=== PATIENT | female | born 1955 | race Caucasian/White ===

== ENCOUNTER 2018-09-19 08:19 | Day surgery (SDC) | payer MEDICARE, MEDICAID ==
[2018-09-19] MEDS: Lactated Ringers 1,000 ML IV ONE (08:58)
[2018-09-19] MEDS: Cyanocobalamin (Vitamin B12) 1,000 MCG/ML SDV IM ONE (09:19)
[2018-09-19] MEDS: MVI, Adult with Vitamin K 10 ML, Thiamine 200 MG, Chromium/Copper/Mang/Selen/Zn 1 ML in... IV ONE ×4 (10:04)
[2018-09-19] MEDS: Glycopyrrolate 0.2 MG/ML 2 ML SDV IVPUSH ONE (12:11)
[2018-09-19] MEDS ORDERED: Propofol 200 MG/20 ML SDV ONE (12:27)
[2018-09-19] MEDS ORDERED: fentaNYL 100 MCG/2 ML SDV ONE (12:28)
[2018-09-19] MEDS ORDERED: Midazolam 1 MG/ML 2 ML SDV ONE (12:28)
[2018-09-19] MEDS ORDERED: Lactated Ringers 1,000 ML ONE (12:53)
[2018-09-19] MEDS ORDERED: Ondansetron 4 MG/2 ML SDV ONE (12:53)
[2018-09-19] MEDS: Iopamidol 612 MG/ML 100 ML Bottle IV SCH (14:33)
[2018-09-19] MEDS: Sodium Chloride 0.9% 10 ML Syringe FLUSH ONE (14:33)
[2018-09-19] MEDS: Sodium Chloride 0.9% 80 ML IV ONE (14:33)
--- NOTE | 2018-09-19 15:27 | CRLCT ---
INDICATION: Dysphagia COMPARISON: None available TECHNIQUE: CT examination of the abdomen and pelvis was performed with the uneventful intravenous administration of 100 cc of Isovue-300 while 3 mm thick axial sections were obtained from the lung bases through the pubic symphysis. Oral contrast was administered. Please note that all CT scans at this facility use dose modulation, iterative reconstruction, and/or weight-based dosing when appropriate to reduce radiation dose to as low as reasonably achievable. FINDINGS: In the abdomen, the liver, spleen, pancreas, and adrenals are normal in appearance. The kidneys are normal in appearance. Clips are seen in the gall bladder fossa from cholecystectomy. There is moderate dilatation of common bile duct measuring 11 millimeters in caliber, consistent with post cholecystectomy status. The abdominal aorta is normal in caliber with no sign of dilatation. There is no sign of retroperitoneal mass or adenopathy. There is a small hiatal hernia. There are changes of an esophagojejunostomy with prompt passage of the oral contrast from the esophagus into the jejunum. The rest of the stomach, the rest of the loops of small bowel, and colon in the abdomen are otherwise normal in appearance. In the pelvis, the appendix is nonvisualized, but there is no sign of an inflammatory process in the area of the appendix. The loops of small bowel and colon in the pelvis are normal in appearance. Visualization of the inferior pelvis is limited by prominent streak artifact from a right total hip prosthesis and changes of ORIF of a left hip fracture. The prosthetic components of the right hip are in anatomic alignment. The femoral neck nail and intramedullary katarina in the left hip are intact. The uterus appears to have been resected, but visualization of this region is limited by prominent streak artifact. The adnexal regions are grossly normal in appearance. The urinary bladder is normal in appearance. There is no sign of pelvic or inguinal mass or adenopathy. The lung bases are clear. There is a moderate compression fracture of L1. There are mild compression fractures of T9 through T12. There is moderate age-appropriate hypertrophic change throughout the inferior thoracic and upper lumbar spines. There is an old moderate inferior L4 endplate fracture. There is prominent L5-S1 disc degenerative disease. IMPRESSION: CT of the abdomen shows changes of esophagojejunostomy with prompt passage of contrast from the esophagus into the nondistended jejunum. Small hiatal hernia. Status post cholecystectomy with moderate dilatation of the common bile duct consistent with post cholecystectomy status. CT of the pelvis shows changes hysterectomy. Visualization of the inferior pelvis limited by prominent streak artifact from right total hip prosthesis and changes of ORIF of a left hip fracture. Please note that all CT scans at this facility use dose modulation, iterative reconstruction, and/or weight-based dosing when appropriate to reduce radiation dose to as low as reasonably achievable. Dictated by Jason Mcneil MD @ Sep 19 2018 3:16PM Signed by Dr. Jason Mcneil @ Sep 19 2018 3:26PM
--- NOTE | 2018-09-22 08:22 | OR ---
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 POSTOPERATIVE DIAGNOSES: Postprandial nausea and bloating, status post Ty-en-Y gastric bypass with normal upper GI endoscopic examination (suggestive of more distal partial small bowel obstruction). OPERATIVE PROCEDURE: Upper GI endoscopy. ANESTHESIA: IV sedation. INDICATION FOR PROCEDURE: This is a 63-year-old status post previous Ty-en-Y gastric bypass; this was done as an open procedure in 2001. Preoperatively, the patient weighed 386 pounds, and she presently has a weight of 183 pounds with BMI of 29.5. Over the recent months, she has had increasing problems with postprandial nausea and bloating. She develops nausea more or less after eating just a small amount of food and is undergoing upper GI endoscopy for investigation of this symptom complex. Potential risks of the procedure, including bleeding and perforation were discussed, and the patient wishes to proceed. DETAILS OF PROCEDURE: The patient was taken to the operating room, placed in a left lateral decubitus position. IV sedation was administered, after which the upper GI endoscope was passed orally through the length of the esophagus and into the gastric pouch, and from there through the gastrojejunostomy, and roughly 20 cm into the Ty limb. Findings overall were entirely normal. There was no evidence of inflammation at the esophagus, EG junction, gastric pouch, or around the gastrojejunostomy nor was any abnormality noted within the Ty limb. There is no esophageal stricturing, and the esophagogastrojejunostomy is wide open. Overall, this examination was entirely normal, which, based on the patient's symptoms, would imply more distal partial small bowel obstruction. The scope was then withdrawn. The procedure was then concluded. Plan will be to obtain a CT scan of the abdomen and pelvis today, and at this point, the patient will be scheduled for exploratory laparotomy on this coming Tuesday. She had a previous open procedure done in 2001, due to her weight of almost 400 pounds at that time, so this will need to be an open laparotomy at this point as well. Jarod Chandra MD /[id number]
== END 2018-09-19 15:40 | disposition home or self-care (01) ==
LOC: JP.SDS 08:19
PROVIDERS: ATTEND Surgery
DX: R11.0 Nausea (principal); R14.0 Abdominal distension (gaseous); Z98.84 Bariatric surgery status; K90.9 Intestinal malabsorption, unspecified; E27.40 Unspecified adrenocortical insufficiency; F41.9 Anxiety disorder, unspecified; F32.9 Major depressive disorder, single episode, unspecified; Z88.6 Allergy status to analgesic agent; Z88.8 Allergy status to other drugs, medicaments and biological substances
CPT/HCPCS: 74177; J2250; J2405; J2704; J3010; J3411; J3420; J3490; J7030; J7120; Q9967

== ENCOUNTER 2018-09-25 07:43 | Inpatient (IN) | payer MEDICARE, MEDICAID ==
[2018-09-25] MEDS ORDERED: Meropenem 500 MG SDV ONE (07:57)
[2018-09-25] MEDS ORDERED: Gabapentin 300 MG Cap PO ONE (08:45)
[2018-09-25] MEDS ORDERED: Ketamine 50 MG in Sodium Chloride 0.9% 49.5 ML IV SCH (09:00)
[2018-09-25] MEDS ORDERED: Fluticasone-Salmeterol 232-14 MCG Powder Inhalent INH ONE (09:00)
[2018-09-25] MEDS ORDERED: Ketamine 500 MG/5 ML MDV IV SCH (09:00)
[2018-09-25] MEDS ORDERED: Albuterol/Ipratropium 3.0-0.5 MG/3 ML Neb Soln NEB ONE (09:00)
[2018-09-25] MEDS ORDERED: Acetaminophen 500 MG Tab PO ONE (09:10)
[2018-09-25] MEDS ORDERED: Propofol 200 MG/20 ML SDV ONE (09:11)
[2018-09-25] MEDS ORDERED: Dexamethasone 4 MG/ML SDV ONE (09:11)
[2018-09-25] MEDS ORDERED: Neostigmine Methylsulfate 1 MG/ML 5 ML Syringe ONE (09:11)
[2018-09-25] MEDS ORDERED: Succinylcholine 200 MG/10 ML MDV ONE (09:11)
[2018-09-25] MEDS ORDERED: Glycopyrrolate 0.2 MG/ML 5 ML MDV ONE (09:11)
[2018-09-25] MEDS ORDERED: fentaNYL 250 MCG/5 ML SDV ONE ×2 (09:11→10:41)
[2018-09-25] MEDS ORDERED: Rocuronium 50 MG/5 ML Vial ONE (09:11)
[2018-09-25] MEDS ORDERED: Ondansetron 4 MG/2 ML SDV ONE (09:11)
[2018-09-25] MEDS: Dextrose 5%-Lactated Ringers 1,000 ML IV SCH ×3 (09:26→23:53)
[2018-09-25] MEDS ORDERED: cefOXitin 2 GM in Sodium Chloride 0.9% 50 ML IV ONE (09:30)
[2018-09-25] MEDS ORDERED: HYDROmorphone/Normal Saline 15 MG/30 ML PCA IV PRN (11:25)
[2018-09-25] MEDS ORDERED: Naloxone 0.4 MG/ML SDV IVPUSH PRN (11:25)
[2018-09-25] MEDS ORDERED: Ondansetron 4 MG/2 ML SDV IVPUSH PRN (13:33)
[2018-09-25] MEDS ORDERED: Metoclopramide 10 MG/2 ML SDV IVPUSH PRN (13:33)
[2018-09-25] MEDS ORDERED: Labetalol 20 MG/4 ML Syringe IVPUSH PRN (13:33)
[2018-09-25] MEDS ORDERED: diphenhydrAMINE 50 MG/ML SDV IVPUSH PRN (13:33)
[2018-09-25] MEDS ORDERED: Albuterol/Ipratropium 3.0-0.5 MG/3 ML Neb Soln INH PRN (13:33)
[2018-09-25] MEDS ORDERED: Naloxone 0.4 MG/ML SDV IV PRN (13:38)
[2018-09-25] MEDS ORDERED: Scopolamine 1.5 MG Transdermal Patch TOP SCH (14:00)
[2018-09-25] MEDS: Baclofen 10 MG Tab PO SCH ×2 (14:45→20:09)
[2018-09-25] MEDS: Gabapentin 250 MG/5 ML Solution ML 470 ML Bottle PO SCH ×2 (14:45→20:12)
[2018-09-25] MEDS: Albuterol/Ipratropium 3.0-0.5 MG/3 ML Neb Soln INH SCH ×2 (14:57→20:08)
[2018-09-25] MEDS ORDERED: Lactated Ringers 500 ML IV ONE (15:28)
[2018-09-25] MEDS ORDERED: Pantoprazole 40 MG Vial IVPUSH SCH (16:00)
[2018-09-25] MEDS ORDERED: MVI, Adult with Vitamin K 10 ML, Thiamine 200 MG, Chromium/Copper/Mang/Selen/Zn 1 ML in... IV SCH ×4 (16:00)
[2018-09-25] MEDS: cefOXitin 2 GM in Sodium Chloride 0.9% 50 ML IV SCH ×2 (16:55→21:54)
[2018-09-25] MEDS: Acetaminophen 325 MG Tab PO SCH ×2 (16:59→21:54)
[2018-09-25] MEDS: Heparin Sodium 5,000 Units/ML Vial SUBCUT SCH (20:08)
[2018-09-25] MEDS: Fluticasone-Salmeterol 232-14 MCG Powder Inhalent INH SCH (20:09)
[2018-09-26] MEDS ORDERED: Iopamidol 612 MG/ML 50 ML SDV PO ONE (03:35)
[2018-09-26] MEDS: cefOXitin 2 GM in Sodium Chloride 0.9% 50 ML IV SCH ×3 (04:29→18:25)
[2018-09-26] MEDS: hydrOXYzine HCl 100 MG/2 ML SDV IM PRN ×2 (04:29→20:34)
[2018-09-26] MEDS: Acetaminophen 325 MG Tab PO SCH ×5 (04:29→21:43)
--- NOTE | 2018-09-26 04:34 | CRLCR ---
INDICATION: RELEASE OF SBO, HX RNY, LEAK CHECK PRELIMINARY IMPRESSIONS: 1. No evidence of contrast extravasation is noted on 2 static submitted images. 2. Surgical drain is present in the left upper quadrant. Agree with preliminary interpretation. No additional findings. Dictated by: Sal Bravo MD @ 09/29/2018 09:29:56 (Electronically Signed)
[2018-09-26] MEDS: Dextrose 5%-Lactated Ringers 1,000 ML IV SCH (06:21)
--- NOTE | 2018-09-26 06:28 | CRLCR ---
INDICATION: Follow up small bowel obstruction. TECHNIQUE: Single upright view of the abdomen pelvis. COMPARISON: X-rays performed earlier on the same date. FINDINGS: Contrast passes from the distal esophagus/proximal small bowel into the colon. No obstruction on this single image. Surgical staple line midline anterior abdominal wall. Postsurgical change right and left upper quadrants and left mid abdomen. IMPRESSION: No obstruction or contrast extravasation. Postsurgical change of the hips. Dictated by Jef Jose MD @ Sep 26 2018 6:25AM Signed by Dr. Jef Jose @ Sep 26 2018 6:27AM
[2018-09-26] MEDS: Albuterol/Ipratropium 3.0-0.5 MG/3 ML Neb Soln INH SCH ×4 (07:06→20:35)
[2018-09-26] MEDS: Fluticasone-Salmeterol 232-14 MCG Powder Inhalent INH SCH ×2 (07:06→20:35)
[2018-09-26] MEDS ORDERED: Dextrose 5%-Lactated Ringers 1,000 ML IV SCH (07:30)
[2018-09-26] MEDS: Heparin Sodium 5,000 Units/ML Vial SUBCUT SCH ×2 (07:50→20:36)
--- NOTE | 2018-09-26 08:20 | OR ---
DATE OF PROCEDURE: 09/25/2018 PREOPERATIVE DIAGNOSIS: Partial small bowel obstruction. POSTOPERATIVE DIAGNOSES: 1. Partial small bowel obstruction secondary to stricture related adhesions. 2. Dilation and decompensation of jejunojejunostomy. 3. Incarcerated incisional hernia. OPERATIVE PROCEDURES: Exploratory laparotomy with lysis of adhesions and, 1. Revision of jejunojejunostomy component of Ty-en-Y gastric bypass (08744). 2. Separate small bowel resection (98267). 3. Small bowel stricturoplasty (57988). 4. Repair of incarcerated incisional hernia (44850). ANESTHESIA: General. DRY DIP WORKER: Sahron Montilla PA-C. INDICATION FOR PROCEDURE: This is a 63-year-old, status post an open Ty-en-Y gastric bypass in 2001, presenting with a picture suggestive of partial small bowel obstruction. She had upper GI endoscopy, which was normal, last week, in a patient status post Ty-en-Y gastric bypass. She complains of postprandial abdominal pain, rapidly becoming full, and bloating after eating, all suggestive of partial small bowel obstruction. The plan is to proceed with an open laparotomy, lysis of adhesions, and bowel resection as indicated. Potential risks including bleeding, infection, leaks from various GI tract closures, possible recurrence of the problem or failure to resolve symptoms by the surgical approach were all gone over, and the patient wishes to proceed. DETAILS OF PROCEDURE: The patient was taken to the operating room. After general endotracheal anesthesia was induced, a Patterson catheter was inserted, and the abdomen was prepped and draped. The previous upper midline incision was then reused, from the umbilicus to the xiphoid and carried down through the full-thickness abdominal wall. Upon entering the peritoneal cavity, some adhesions between the omentum and the anterior abdominal wall were taken down, and some adhesions were then taken down between loops of the small bowel and omentum. During the course of entering the abdomen, an incarcerated hernia was noted at the lower end of the incision, which contained some incarcerated omentum and preperitoneal fat. This had been reduced as well at this point. The primary small bowel findings were that of the jejunojejunostomy being markedly dilated and decompensated. This appeared to be related to some stricturing of the small bowel somewhat distal to the jejunojejunostomy related to adhesions. The first site had quite a significant crease in it, after lysis of adhesions, and the decision was made to resect this, and this was done with proximal and distal to the stricture being divided with a BRIANNE stapler and the underlying mesentery divided with BRIANNE manisha as well. The small bowel continuity was then reconstituted with an internal firing of the Endo-BRIANNE 60-mm stapler, common opening was then closed transversely with the same stapler, and the angles of anastomosis and mesenteric defect were closed with 3-0 Vicryl stitch. Somewhat beyond that, there was also another narrowed area of the small bowel. This was felt amenable to stricturoplasty. An opening lateral to the point of the stricture was made and the bowel, where it flipped over on itself, was then connected by means of internal firing of the BRIANNE stapler. This common opening was then closed transversely as well. There was no mesenteric defect in this case, and the angles of anastomosis were reinforced with some 3-0 Vicryl stitch. The jejunojejunostomy, again, was noted to be quite dilated and patulous. The Ty limb, as it came off of that anastomosis, was then divided flush with the anastomosis and that anastomosis remaining between the biliopancreatic limb and what had been the beginning of the common limb, was then resected and divided proximally and distally with BRIANNE stapler and underlying mesentery likewise divided with BRIANNE manisha. The initial enteric continuity was then established with anastomosis between the biliopancreatic limb and what had been the proximal end of the common limb, with the same sequence as outlined in the above resection. Then, finally, the Ty-en-Y jejunojejunostomy was reconstructed with anastomosis between the Ty limb and the small bowel roughly 30 cm distal to the most recent anastomosis with the same [id number] enteroenterostomy, and the common limb closed with BRIANNE stapler as well. Angles of anastomosis of this defect were reinforced with some 3-0 Vicryl stitch. In this case, the broader mesenteric defect was closed with a 2-0 silk stitch to provide some permanency. At this point, no further problems were noted. The abdomen was irrigated with meropenem-containing saline solution. The midline fascia was then approximated with #2 Vicryl stitch, which included repair of the hernia at the lower end of the incision, subcutaneous tissue with 2-0 Vicryl stitch, subdermal layer with 4-0 Vicryl was then placed, and the skin with manisha. Dressing was applied. The patient was taken to the recovery room in a satisfactory condition. Physician fast food sales assistant, Sharon Montilla, played an essential role in assisting in this case, helping to position the patient, retract structures as needed, as well as suturing and cutting sutures when indicated. Her presence improved patient safety and decreased the operative time. Jarod Chandra MD /[id number]
[2018-09-26] MEDS ORDERED: Acetaminophen 500 MG Tab PO ONE (09:00)
[2018-09-26] MEDS: Baclofen 10 MG Tab PO SCH ×3 (09:03→20:36)
[2018-09-26] MEDS: Magnesium Sulfate/Water 2 GM in Premix Bag 1 BAG IV SCH ×3 (09:04→15:37)
[2018-09-26] MEDS: SCOPOLAMINE PATCH CHECK TOP SCH (09:05)
[2018-09-26] MEDS: buPROPion 150 MG Tab.ER PO SCH (09:06)
[2018-09-26] MEDS: Gabapentin 250 MG/5 ML Solution ML 470 ML Bottle PO SCH ×3 (09:10→20:44)
--- NOTE | 2018-09-26 11:05 | PN ---
DATE OF SERVICE: 09/26/2018 SUBJECTIVE: Lorie Rowe is postoperative day #1. She is tolerating ice chips and liquids. Vital signs have been stable and her pain she reports is 7/10 consistently. Upper GI this morning was normal. REVIEW OF SYSTEMS: Remainder of review of systems negative for any pertinent positives or negatives. OBJECTIVE: GENERAL: Lorie Rowe is a pleasant 63-year-old female. She is alert and orientated, lying in bed. VITAL SIGNS: TPR is 99.2, 94, 20, and blood pressure 97/57. HEENT: Negative. NECK: Supple. HEART: Regular rate and rhythm. LUNGS: Clear. ABDOMEN: Dressings dry and intact. Abdominal binder is on. Patterson catheter intact. Draining a clear sandra urine. EXTREMITIES: Without peripheral edema. SCDs are on. ASSESSMENT: 1. Exploratory laparotomy with lysis of adhesions. a. Revision of the jejunostomy component of the Ty-en-Y gastric bypass surgery. b. Segment of small bowel resection. c. Segment of small bowel stricture plasty. d. Repair of incarcerated incisional hernia for partial small bowel obstruction secondary to adhesions and stricturing. Dilation and deserosalization of the jejunojejunostomy and incarcerated incisional hernia. Date of surgery is 09/25/2018. Surgeon, Jarod Chandra MD. PLAN: 1. Magnesium 2 g IV q.6 hours x72 hours. 2. A step 2 gastric bypass diet. If tolerated tomorrow, we will advance to step 3 and she will remain on that for several months. 3. Protein supplement t.i.d. 4. Discontinue Patterson catheter. 5. Physical therapy. 6. Home health care. Discharge consult. She does have home health care now that will need to be increased. Good pulmonary toilet. 7. We will evaluate p.r.n. or in a.m. Lorie requests that she go home on , 09/28/2018. Sharon Montilla PA-C /[id number]
[2018-09-26] MEDS: HYDROmorphone 2 MG Tab PO PRN ×3 (11:54→20:34)
[2018-09-26] MEDS: Pantoprazole 40 MG Tab.CR PO SCH (12:23)
[2018-09-26] MEDS: MVI, Adult with Vitamin K 10 ML, Thiamine 200 MG, Chromium/Copper/Mang/Selen/Zn 1 ML in... IV SCH ×4 (15:34)
[2018-09-26] MEDS ORDERED: Tamsulosin 0.4 MG Cap.ER PO ONE (16:15)
[2018-09-26] MEDS ORDERED: Furosemide 20 MG/2 ML VIAL IVPUSH ONE (16:15)
[2018-09-26] MEDS: Albuterol 8 GM Inhaler INH SCH ×2 (16:31→20:35)
[2018-09-26] MEDS ORDERED: Metoclopramide 10 MG Tab PO PRN (18:02)
[2018-09-26] MEDS ORDERED: diphenhydrAMINE 25 MG Cap PO PRN (19:12)
[2018-09-27] MEDS: HYDROmorphone 2 MG Tab PO PRN ×5 (00:58→20:05)
[2018-09-27] MEDS: Ondansetron 4 MG Tab.DIS PO PRN ×2 (01:11→22:07)
[2018-09-27] MEDS: Acetaminophen 325 MG Tab PO SCH ×4 (03:06→21:47)
[2018-09-27] MEDS: Albuterol/Ipratropium 3.0-0.5 MG/3 ML Neb Soln INH SCH ×5 (07:15→21:42)
[2018-09-27] MEDS: Fluticasone-Salmeterol 232-14 MCG Powder Inhalent INH SCH ×2 (07:25→21:45)
[2018-09-27] MEDS: Albuterol 8 GM Inhaler INH SCH ×4 (07:31→21:45)
[2018-09-27] MEDS: buPROPion 150 MG Tab.ER PO SCH (08:07)
[2018-09-27] MEDS: Tamsulosin 0.4 MG Cap.ER PO SCH (08:07)
[2018-09-27] MEDS: Baclofen 10 MG Tab PO SCH ×3 (08:08→21:46)
[2018-09-27] MEDS: Magnesium Hydroxide 400 MG/5 ML Susp 30 ML Cup PO SCH ×2 (08:08→21:45)
[2018-09-27] MEDS: Pantoprazole 40 MG Tab.CR PO SCH (08:08)
[2018-09-27] MEDS: Heparin Sodium 5,000 Units/ML Vial SUBCUT SCH ×2 (08:08→20:07)
[2018-09-27] MEDS: SCOPOLAMINE PATCH CHECK TOP SCH (08:09)
[2018-09-27] MEDS: Gabapentin 250 MG/5 ML Solution ML 470 ML Bottle PO SCH ×3 (08:09→21:46)
[2018-09-27] MEDS ORDERED: Cyanocobalamin (Vitamin B12) 1,000 MCG/ML SDV IM ONE (09:00)
--- NOTE | 2018-09-27 09:06 | PN ---
DATE OF SERVICE: 09/27/2018 SUBJECTIVE: Lorie had her Patterson catheter removed. She has been voiding. Temperature max of 100.8. Staff has been working diligently with incentive spirometer and Acapella. Declines to get up and walk. Passing flatus. She rates the pain consistently between 7 and 8. She is resting comfortably. Oral intake is 1500, urine output is 950. REVIEW OF SYSTEMS: Remainder of review of systems negative for any pertinent positives and negatives. OBJECTIVE: GENERAL: Lorie Rowe is a pleasant 63-year-old female. She is alert, orientated, lying in bed. VITAL SIGNS: TPR is 99, 87, 18, blood pressure is 112/32. HEENT: Negative. NECK: Supple. HEART: Regular rate and rhythm. LUNGS: Clear. ABDOMEN: Dressings dry and intact. Abdominal binder is on. EXTREMITIES: Without peripheral edema. ASSESSMENT: Exploratory laparotomy, lysis of adhesions. 1. Revision of the jejunojejunostomy component of the Ty-en-Y gastric bypass surgery. 2. Separate small bowel resection. 3. Small bowel stricture plasty. 4. Repair of incarcerated incisional hernia. Date of surgery: 09/25/2018. PLAN: 1. Step 3 gastric bypass diet. 2. Ambulate 6 times daily. 3. Good pulmonary toilet. 4. We will evaluate p.r.n. or in a.m. and plan discharge in a.m. Sharon Montilla PA-C /[id number]
[2018-09-27] MEDS ORDERED: Loratadine 10 MG Tab PO PRN (10:48)
[2018-09-27] MEDS: MVI, Adult with Vitamin K 10 ML, Thiamine 200 MG, Chromium/Copper/Mang/Selen/Zn 1 ML in... IV SCH ×4 (16:34)
[2018-09-28] MEDS: HYDROmorphone 2 MG Tab PO PRN ×3 (00:14→09:00)
[2018-09-28] MEDS: Acetaminophen 325 MG Tab PO SCH ×2 (04:06→10:38)
[2018-09-28] MEDS: Albuterol/Ipratropium 3.0-0.5 MG/3 ML Neb Soln INH SCH (07:32)
[2018-09-28] MEDS: Albuterol 8 GM Inhaler INH SCH (07:32)
[2018-09-28] MEDS: Fluticasone-Salmeterol 232-14 MCG Powder Inhalent INH SCH (07:32)
--- NOTE | 2018-09-28 08:51 | DISCH ---
ADMISSION DIAGNOSES: Partial small bowel obstruction status post Ty-en-Y gastric bypass surgery, unspecified surgical malabsorption, B12 deficiency, myalgia and myositis, unspecified, osteoarthrosis involving ankle and foot, noise induced hearing loss, anxiety, depression, secondary adrenal insufficiency, headache, hypoalbuminemia, alcohol abuse, osteoporosis, Wernicke-Korsakoff syndrome, generalized weakness, posture imbalance, impaired mobility and ADLs. DISCHARGE DIAGNOSES: Exploratory laparotomy with lysis of adhesions: 1. Revision of the jejunojejunostomy component of the Ty-en-Y gastric bypass. 2. Separate small-bowel resection. 3. Small bowel strictureplasty. 4. Repair of incarcerated incisional hernia for partial small bowel obstruction secondary to stricture related adhesions. 5. Dilation and decompensation of jejunojejunostomy. 6. Incarcerated incisional hernia. Date of surgery 09/25/2018. HISTORY: Lorie Rowe is a 63-year-old female, status post open Ty-en-Y gastric bypass in 2001. She presented with a picture suggestive of partial small bowel obstruction. An upper GI was normal and with her symptoms of postprandial abdominal pain rapidly becoming full, bloating after eating; all suggestive of partial small bowel obstruction. After preoperative evaluation and discussion of possible risks and possible complications, she wished to proceed with surgical procedure. HOSPITAL COURSE: Lorie had her surgery on 09/25/2018. She had no operative complications. On postoperative day #1, her magnesium was replaced. She was started on a step 2 gastric bypass diet with protein supplements t.i.d. Her Patterson catheter was discontinued and she started physical therapy. On postoperative day #2, her diet was advanced to a step 3 gastric bypass diet. She did have a temperature max of 100.8, and thought to be due to inactivity. She was using her incentive spirometer and Acapella frequently, but was declining to walk. She walked better yesterday, last evening, and during the night. She is passing gas. She was given bowel stimulation. She requests to go home because her home health care is lined up to see her today. OBJECTIVE: GENERAL: Lorie Rowe is a pleasant 63-year-old female. VITAL SIGNS: Height is 5 feet 4 inches, weight is 181 pounds. BMI is 31. TPR is 97.3, 91, 20, blood pressure 111/43. HEENT: Negative. NECK: Supple. HEART: Regular rate and rhythm. LUNGS: Clear. ABDOMEN: Midline stapled incision looks good. There is some superficial bruising. Abdominal binder has been on. EXTREMITIES: Without peripheral edema. DISPOSITION: Discharged to home. CONDITION: Stable and improving. FOLLOWUP: Followup appointment with Sharon Montilla PA-C, on 10/04/2018 at 11:00 a.m. HOME MEDICATIONS: 1. Dilaudid 2 mg every 4 hours p.r.n. pain, #42. 2. Milk of magnesia 30 mL to take 1 daily 2 doses were sent home with the patient. She is to resume her home medications: 1. Tylenol Extra Strength 1000 mg 3 times a day. 2. Ventolin inhaler 2 puffs 4 times daily. 3. Jeffery aspirin 81 mg daily. 4. Baclofen 20 mg oral 3 times a day. 5. Calcium citrate 1 twice a day. 6. Vitamin D3, 1000 international units daily. 7. Vitamin B12 one tablet sublingual daily. 8. Ferrous gluconate 324 mg oral twice daily. 9. Advair 500/50 one puff inhalation twice daily. 10.Folic acid 1 mg oral daily. 11.Neurontin 300 mg oral 3 times a day. 12.Iron plus vitamin C, vitamin B12 one tablet twice daily. 13.Lidocaine 5% one patch topical daily. 14.D3 Complete caplet 1 tablet daily. 15.Multivitamin 1 daily. 16.Prilosec 40 mg oral daily. 17.Zofran 4 mg oral q.4 hours p.r.n. nausea. 18.Protonix 40 mg oral daily. 19.Prolia 1 dose IM every 6 months. 20.Senokot 8.6 mg oral daily. 21.Thiamine B100 one daily. 22.Wellbutrin 150 mg oral daily. 23.Hydroxyzine 50 mg oral twice daily. DIET: Step 3 gastric bypass diet. Drink 8 to 10 glasses of water a day. Other activity as tolerated. No lifting over 10 pounds for 6 weeks. Driving, do not drive for 1 week and while on pain medication. Shower/bathing: May shower. DISCHARGE INSTRUCTIONS: Notify provider if any fever, increased pain, nausea, or vomiting. Keep site clean and dry. Wear abdominal binder for 4 weeks and then as tolerated. SPECIAL INSTRUCTIONS: Use incentive spirometer 10 times every hour while awake.
[2018-09-28] MEDS: Baclofen 10 MG Tab PO SCH (08:53)
[2018-09-28] MEDS: Tamsulosin 0.4 MG Cap.ER PO SCH (08:53)
[2018-09-28] MEDS: Heparin Sodium 5,000 Units/ML Vial SUBCUT SCH (08:54)
[2018-09-28] MEDS: buPROPion 150 MG Tab.ER PO SCH (08:54)
[2018-09-28] MEDS: Pantoprazole 40 MG Tab.CR PO SCH (08:55)
[2018-09-28] MEDS: Gabapentin 250 MG/5 ML Solution ML 470 ML Bottle PO SCH (09:01)
[2018-09-28] MEDS ORDERED: Magnesium Hydroxide 400 MG/5 ML Susp 30 ML Cup PO ONE (10:00)
== END 2018-09-28 11:15 | disposition home health service (06) | DRG 327 ==
LOC: JP.MS 07:43 → JP.SDS 07:43 → EDSTATUS 10:30 → JP.MS 12:00
PROVIDERS: ADMIT Surgery; ATTEND Surgery
PROC: 0DNW0ZZ Release Peritoneum, Open Approach (ICD-10-PCS; principal; 2018-09-25)
PROC: 0D160ZA Bypass Stomach to Jejunum, Open Approach (ICD-10-PCS; principal; 2018-09-25)
PROC: 0DB80ZZ Excision of Small Intestine, Open Approach (ICD-10-PCS; principal; 2018-09-25)
DX: K56.51 Intestinal adhesions [bands], with partial obstruction (principal); K91.2 Postsurgical malabsorption, not elsewhere classified; E27.49 Other adrenocortical insufficiency; K43.0 Incisional hernia with obstruction, without gangrene; E53.8 Deficiency of other specified B group vitamins; M15.9 Polyosteoarthritis, unspecified; H91.90 Unspecified hearing loss, unspecified ear; F41.9 Anxiety disorder, unspecified; F32.9 Major depressive disorder, single episode, unspecified; M81.0 Age-related osteoporosis without current pathological fracture; G89.29 Other chronic pain; M54.9 Dorsalgia, unspecified; F10.10 Alcohol abuse, uncomplicated; Z96.641 Presence of right artificial hip joint; Z79.899 Other long term (current) drug therapy; Z98.84 Bariatric surgery status; Z88.1 Allergy status to other antibiotic agents; Z88.8 Allergy status to other drugs, medicaments and biological substances
CPT/HCPCS: 36415; 74018; 74240; 80053; 83735; 83880; 84100; 85025; 88307; 94640; 97161-GP; A9270-GY; C9113; J0171; J0330; J0694; J1100; J1170; J1200; J1644; J1940; J2185; J2405; J2704; J2710; J2795; J3010; J3410; J3411; J3420; J3475; J3490; J7042; J7050; J7120; J7620-GY; Q9967